=== PATIENT | male | born 1970 | race African-American/Black ===

== ENCOUNTER 2019-09-19 17:06 | Emergency (ER) | payer BC, OTHER ==
[2019-09-19] MEDS ORDERED: Lidocaine 2% w/ Epi 1:200K 10 ML VIAL ONE (17:17)
== END 2019-09-19 17:37 | disposition home or self-care (01) ==
LOC: BURERS 17:06
DX: L02.412 Cutaneous abscess of left axilla (principal); M19.90 Unspecified osteoarthritis, unspecified site; E11.9 Type 2 diabetes mellitus without complications; E78.5 Hyperlipidemia, unspecified; E78.00 Pure hypercholesterolemia, unspecified; I10 Essential (primary) hypertension
CPT/HCPCS: 10060

== ENCOUNTER 2019-09-21 13:44 | Emergency (ER) | payer BC | END 2019-09-21 14:42 | disposition home or self-care (01) | LOC: BURERS 13:44 | DX: Z48.817 Encounter for surgical aftercare following surgery on the skin and subcutaneous tissue (principal); M19.90 Unspecified osteoarthritis, unspecified site; E11.9 Type 2 diabetes mellitus without complications; E78.5 Hyperlipidemia, unspecified; I10 Essential (primary) hypertension; E78.00 Pure hypercholesterolemia, unspecified; Z79.899 Other long term (current) drug therapy | CPT/HCPCS: 99282 ==

== ENCOUNTER 2019-11-23 10:37 | Emergency (ER) | payer BC | END 2019-11-23 11:22 | disposition home or self-care (01) | LOC: BURERS 10:37 | DX: S83.91XA Sprain of unspecified site of right knee, initial encounter (principal); S83.206A Unspecified tear of unspecified meniscus, current injury, right knee, initial encounter; E11.9 Type 2 diabetes mellitus without complications; E78.5 Hyperlipidemia, unspecified; E78.00 Pure hypercholesterolemia, unspecified; I10 Essential (primary) hypertension; M19.90 Unspecified osteoarthritis, unspecified site; F17.200 Nicotine dependence, unspecified, uncomplicated; X58.XXXA Exposure to other specified factors, initial encounter | CPT/HCPCS: 99283 ==

== ENCOUNTER 2021-06-16 11:10 | Outpatient (CLI) | payer BC | END 2021-06-16 11:11 | disposition home or self-care (01) | LOC: BURRAD 11:10 | PROVIDERS: ATTEND Dermatology | DX: L40.0 Psoriasis vulgaris (principal); R91.1 Solitary pulmonary nodule; Z79.899 Other long term (current) drug therapy | CPT/HCPCS: 71046 ==

== ENCOUNTER 2025-05-20 16:45 | Emergency (ER) | payer OTHER ==
[2025-05-20] MEDS ORDERED: Ketorolac Tromethamine 30 MG (1 mL) VIAL ONE (17:20)
[2025-05-20] MEDS ORDERED: Metoclopramide HCl 10 MG (2 mL) VIAL ONE (17:20)
[2025-05-20] MEDS ORDERED: diphenhydrAMINE 50 MG/ML VIAL ONE (17:20)
[2025-05-20] MEDS ORDERED: predniSONE 20 MG TAB ONE (18:13)
== END 2025-05-20 18:18 | disposition home or self-care (01) ==
LOC: BURERS 16:45
DX: S16.1XXA Strain of muscle, fascia and tendon at neck level, initial encounter (principal); R51.9 Headache, unspecified; E11.9 Type 2 diabetes mellitus without complications; I10 Essential (primary) hypertension; F17.220 Nicotine dependence, chewing tobacco, uncomplicated; X58.XXXA Exposure to other specified factors, initial encounter
CPT/HCPCS: 96374; 96375; J1200; J1885; J2765; J7512